=== PATIENT | male | born 1995 | race African-American/Black ===

== ENCOUNTER 2024-02-11 13:17 | Emergency (ER) | payer SELFPAY ==
[~2024-02-11] VITALS: Ht 172.7 cm; Wt 66.2 kg
[2024-02-11] MEDS ORDERED: LIDOCAINE 2% 20 ML MDV ONE (13:30)
[2024-02-11] MEDS: LIDOCAINE HCL/PF 1% 30 ML VIAL TP ONE (13:35)
[2024-02-11] MEDS ORDERED: AMOX-427 PO (13:48)
[2024-02-11 14:00] VITALS: BP 124/64; TEMP 98.4; O2SAT 98
== END 2024-02-11 14:01 | disposition home or self-care (01) ==
LOC: ER 13:17
DX: S01.511A Laceration without foreign body of lip, initial encounter (principal); Z60.2 Problems related to living alone; W22.8XXA Striking against or struck by other objects, initial encounter; Y93.89 Activity, other specified; Y92.89 Other specified places as the place of occurrence of the external cause; Y99.8 Other external cause status
CPT/HCPCS: 40650; 99284; J3490 ×2; A6403

== ENCOUNTER 2024-02-19 08:18 | Emergency (ER) | payer SELFPAY ==
[~2024-02-19] VITALS: Ht 172.7 cm; Wt 68.0 kg
[~2024-02-19 08:18] MED LIST: AMOX-427 PO
[2024-02-19 08:20] VITALS: BP 108/69; TEMP 98.2
[2024-02-19 08:30] VITALS: O2SAT 100
== END 2024-02-19 08:35 | disposition home or self-care (01) ==
LOC: ER 08:20
DX: S01.511D Laceration without foreign body of lip, subsequent encounter (principal); Z48.02 Encounter for removal of sutures; Z60.2 Problems related to living alone; X58.XXXD Exposure to other specified factors, subsequent encounter